=== PATIENT | female | born 1990 ===

== ENCOUNTER 2017-04-03 12:03 | Emergency (ER) | payer OTHER ==
[2017-04-03 12:12] VITALS: BP 134/95; PULSE 106; RESP 18; TEMP 100.4; O2SAT 98; BMI 24.2
--- NOTE | 2017-04-03 12:27 | ED PDOC ---
HPI: General Adult Time Seen by Provider: 04/03/17 12:21 Chief Complaint (Provider): Cough History Per: Patient History/Exam Limitations: no limitations Current Symptoms Are (Timing): Still Present Additional Complaint(s): Francisco West is a 26 year old female that presents to the ED with a chief complaint of a productive cough with associated mild fever that she has been experiencing for the past week. Clear and white sputum. Past Medical History Reviewed: Historical Data Vital Signs: Last Vital Signs Temp 100.4 F H 04/03/17 12:11 Pulse 106 H 04/03/17 12:11 Resp 18 04/03/17 12:11 BP 134/95 H 04/03/17 12:11 Pulse Ox 98 04/03/17 12:34 - Family History Family History: States: Unknown Family Hx - Immunization History Hx Tetanus Toxoid Vaccination: No Hx Influenza Vaccination: No Hx Pneumococcal Vaccination: No - Home Medications Home Medications: Ambulatory Orders Medication Instructions Recorded Desogestrel/Ethinyl Estradio [Apri 1 tab DAILY 05/07/15 0.15 mg-0.03 mg] Spironolactone 50 mg PO DAILY 05/07/15 Pantoprazole Sodium [Protonix] 40 mg PO DAILY #15 ect 01/07/17 Albuterol HFA [Ventolin HFA 90 1 puff IH BID PRN #1 unit 04/03/17 mcg/actuation (8 g)] Azithromycin [Zithromax] 250 mg PO DAILY #6 tab 04/03/17 Promethazine HCl/Codeine 10 ml PO Q8H PRN #150 ml 04/03/17 [Prometh-Codein 6.25-10 mg/5 ml] predniSONE [predniSONE Tab] 20 mg PO DAILY #12 tab 04/03/17 - Allergies Allergies/Adverse Reactions: Allergies Allergy/AdvReac Type Severity Reaction Status Date / Time No Known Allergies Allergy Verified 05/07/15 17:08 Review of Systems Constitutional: Positive for: Fever Respiratory: Positive for: Cough (productive) Physical Exam - Reviewed Nursing Documentation Reviewed: Yes Vital Signs Reviewed: Yes - Physical Exam Appears: Positive for: Non-toxic, No Acute Distress Head Exam: Positive for: ATRAUMATIC, NORMOCEPHALIC Skin: Positive for: Normal Color, Warm Eye Exam: Positive for: Normal appearance, EOMI, PERRL ENT: Positive for: Normal ENT Inspection Cardiovascular/Chest: Positive for: Regular Rate, Rhythm. Negative for: Murmur Respiratory: Positive for: Normal Breath Sounds. Negative for: Wheezing Neurologic/Psych: Positive for: Alert, Oriented. Negative for: Motor/Sensory Deficits - ECG O2 Sat by Pulse Oximetry: 98 (RA) Pulse Ox Interpretation: Normal Medical Decision Making Medical Decision Making: Impression: Viral Infection Plan: * Patient given Rx for Azithromycin, discussed with patient not to use Azithromycin unless symptoms worsen over the course of the next few days. Patient additionally given other Rx to use in the meantime. Patient has no additional complaints or questions, is stable for discharge home. Scribe Attestation: Documented by Khushi Don, acting as a scribe for Elaine Valentino PA-C. Provider Scribe Attestation: All medical record entries made by the Scribe were at my direction and personally dictated by me. I have reviewed the chart and agree that the record accurately reflects my personal performance of the history, physical exam, medical decision making, and the department course for this patient. I have also personally directed, reviewed, and agree with the discharge instructions and disposition. Disposition - Clinical Impression Clinical Impression: URI (upper respiratory infection), Viral infection - Patient ED Disposition Is Patient to be Admitted: No - Disposition Disposition: Routine/Home Disposition Time: 12:29 Condition: STABLE Prescriptions: Albuterol HFA [Ventolin HFA 90 mcg/actuation (8 g)] 1 puff IH BID PRN #1 unit PRN Reason: Wheezing Azithromycin [Zithromax] 250 mg PO DAILY #6 tab predniSONE [predniSONE Tab] 20 mg PO DAILY #12 tab Promethazine HCl/Codeine [Prometh-Codein 6.25-10 mg/5 ml] 10 ml PO Q8H PRN #150 ml PRN Reason: Cough Instructions: Upper Respiratory Infection (ED) Forms: [employer] (Hungarian)
== END 2017-04-03 12:48 | disposition home or self-care (01) ==
LOC: H.ER 12:03
DX: J06.9 Acute upper respiratory infection, unspecified (principal)

== ENCOUNTER 2017-11-14 05:25 | Emergency (ER) | payer BC, OTHER ==
[2017-11-14 05:30] VITALS: BMI 25.3
[2017-11-14] MEDS ORDERED: DiphenhydrAMINE 50 mg/ml Inj IVP STA (05:30)
--- NOTE | 2017-11-14 05:32 | ED PDOC ---
HPI: Allergic Reaction Time Seen by Provider: 11/14/17 05:29 History Per: Patient History/Exam Limitations: no limitations Onset/Duration Of Symptoms: Hrs Current Symptoms Are (Timing): Still Present Additional Complaint(s): Hx of seasonal allergies presenting with allergies, states she started having symptoms of itchy eyes and then itchy throat, no respiratory difficulty, no shortness of breath. No fevers. Normally takes claritin, last usage was 30 minutes ago. States symptoms acutely worsened while exercising. Patient took benadryl 50mg PO and pepcid 20mg PO. No fevers, chills. Past Medical History Reviewed: Historical Data, Nursing Documentation, Vital Signs - Medical History PMH: No Chronic Diseases - Family History Family History: States: Unknown Family Hx - Immunization History Hx Tetanus Toxoid Vaccination: No Hx Influenza Vaccination: No Hx Pneumococcal Vaccination: No - Home Medications Home Medications: Ambulatory Orders Medication Instructions Recorded Nitrofurantoin Macrocrystals 1 cap PO BID #14 cap 07/01/17 [Macrobid] Phenazopyridine [Pyridium] 200 mg PO BID #6 tab 07/01/17 - Allergies Allergies/Adverse Reactions: Allergies Allergy/AdvReac Type Severity Reaction Status Date / Time No Known Allergies Allergy Verified 07/01/17 13:35 Review of Systems ROS Statement: Except As Marked, All Systems Reviewed And Found Negative ENT: Positive for: Nose Discharge, Nose Congestion. Negative for: Throat Swelling Physical Exam - Reviewed Nursing Documentation Reviewed: Yes Vital Signs Reviewed: Yes - Physical Exam Appears: Positive for: Well, Non-toxic, Uncomfortable Head Exam: Positive for: ATRAUMATIC, NORMAL INSPECTION, NORMOCEPHALIC Skin: Positive for: Normal Color, Warm, DRY Eye Exam: Positive for: EOMI, PERRL, Periorbital swelling ENT: Positive for: Sinus Pain/Drainage Neck: Positive for: Normal, Painless ROM Cardiovascular/Chest: Positive for: Regular Rate, Rhythm Respiratory: Positive for: CNT, Normal Breath Sounds Gastrointestinal/Abdominal: Positive for: Normal Exam, Soft Back: Positive for: Normal Inspection Extremity: Positive for: Normal ROM Neurologic/Psych: Positive for: Alert, Oriented - ECG Pulse Ox Interpretation: Normal - Progress ED Course And Treament: 530AM A/P: Hx of seasonal allergies presenting with allergic reaction -patient has patent airway, no acute distress although uncomfortable appearing -will provide benadryl and solu-medrol, ice pack is placed on eyes -will re-eval 630AM -Patient much improved, swelling has decreased, able to open eyes -Will discharge home -Return precautions given Re-evaluation Time: 06:30 Condition: Re-examined, Improved Disposition - Clinical Impression Clinical Impression: Allergic reaction - Patient ED Disposition Is Patient to be Admitted: No - Disposition Referrals: Maricel Marsh MD [Primary Care Provider] - Disposition: Routine/Home Disposition Time: 06:28 Condition: IMPROVED Instructions: Seasonal Allergies in Adults
[2017-11-14 05:52] VITALS: BP 144/97; PULSE 86; RESP 16; TEMP 98; O2SAT 100
== END 2017-11-14 07:08 | disposition home or self-care (01) ==
LOC: H.ER 05:25
DX: J30.2 Other seasonal allergic rhinitis (principal)
CPT/HCPCS: 96374; 96375; 99283; J1200; J2930

== ENCOUNTER 2018-06-18 08:41 | Emergency (ER) | payer OTHER ==
[2018-06-18 08:46] VITALS: PULSE 92; TEMP 98; O2SAT 100; BMI 26.2
[2018-06-18] MEDS ORDERED: PROPARACAINE/FLUORESCEIN SOD 100 DROP/5 ML BOTTLE OD STA (09:07)
[2018-06-18] MEDS ORDERED: Oxycodone/Acetaminophen 5/325 mg Tab PO STA (09:11)
[2018-06-18] MEDS ORDERED: Oxycodone/Acetaminophen 5/325 mg Tab ONE (09:17)
[2018-06-18] MEDS ORDERED: Ciprofloxacin 0.3% OPTH SOLN OD STA (09:34)
--- NOTE | 2018-06-18 10:14 | ED PDOC ---
HPI: Eye Injury/Pain Time Seen by Provider: 06/18/18 08:58 Chief Complaint (Nursing): Eye Problem Chief Complaint (Provider): Eye Problem History Per: Patient History/Exam Limitations: no limitations Onset/Duration Of Symptoms: Days (x 1) Current Symptoms Are (Timing): Still Present Wears Contact Lens?: Yes Associated Symptoms: Pain Additional Complaint(s): 28 year old female with worsening right eye pain since last night. Patient reports she had irritation when wearing contacts. She flushed eye with saline with contact still present. Patient tried to remove contact and experienced severe pain. She then went to bed after successfully removing it and woke up with severe pain, photophobia and swelling of upper eyelid. Denies a history of similar symptoms. Offers no other medical complaints. PMD: Dr. Maricel Marsh Opthamologist: Dr Suleman Oliveira Past Medical History Reviewed: Historical Data, Nursing Documentation, Vital Signs Vital Signs: Last Vital Signs Temp 98 F 06/18/18 08:45 Pulse 92 H 06/18/18 08:45 Resp BP 138/93 H 06/18/18 08:45 Pulse Ox 100 06/18/18 08:45 - Medical History PMH: No Chronic Diseases - Surgical History Surgical History: No Surg Hx - Family History Family History: States: Unknown Family Hx - Immunization History Hx Tetanus Toxoid Vaccination: No Hx Influenza Vaccination: No Hx Pneumococcal Vaccination: No - Home Medications Home Medications: Ambulatory Orders Medication Instructions Recorded Nitrofurantoin Macrocrystals 1 cap PO BID #14 cap 07/01/17 [Macrobid] Phenazopyridine [Pyridium] 200 mg PO BID #6 tab 07/01/17 Cephalexin [Keflex] 500 mg PO BID #20 capsule 01/08/18 Desogestrel-Ethinyl Estradiol 1 tab PO DAILY 01/08/18 [Apri 28 Day Tablet] Ibuprofen [Motrin] 600 mg PO Q6H PRN #20 tab 01/08/18 Phenazopyridine [Phenazopyridine 200 mg PO BID #6 tab 01/08/18 HCl] - Allergies Allergies/Adverse Reactions: Allergies Allergy/AdvReac Type Severity Reaction Status Date / Time No Known Allergies Allergy Verified 06/18/18 09:17 Review of Systems ROS Statement: Except As Marked, All Systems Reviewed And Found Negative Eyes: Positive for: Pain (right), Eyelid Inflammation (swelling of right upper eyelid ), Other (photophobia) Physical Exam - Reviewed Nursing Documentation Reviewed: Yes Vital Signs Reviewed: Yes - Physical Exam Appears: Positive for: Non-toxic, No Acute Distress Head Exam: Positive for: ATRAUMATIC, NORMAL INSPECTION, NORMOCEPHALIC Skin: Positive for: Normal Color, Warm, Dry Eye Exam: Positive for: Other (right upper eyelid swollen without erythema. fluorescein uptake covering entire pupil w circular shape and irregular borders; not extending past iris. Erythema of tarsal plates with eyelid inversion. No foreign bodies. Vision intact to object differentiation with pain control). Negative for: Normal appearance (Patient is unable to spontaneously open eye due to pain and photophobia) Cardiovascular/Chest: Positive for: Regular Rate, Rhythm Respiratory: Positive for: Normal Breath Sounds Neurologic/Psych: Positive for: Alert, Oriented. Negative for: Motor/Sensory Deficits - ECG O2 Sat by Pulse Oximetry: 100 (RA) Pulse Ox Interpretation: Normal Medical Decision Making Medical Decision Makin:07 MDM: Patient presents with corneal abrasion secondary to contact lens removal Pain and vision improved with fluorescein, lidocaine and topical application. Patient given ofloxacin drops Will be discharged from the ED and directly go to dust collector. Scribe Attestation: Documented by Parul Cage acting as a scribe for Xiomara Latham MD Provider Scribe Attestation: All medical record entries made by the Scribe were at my direction and personally dictated by me. I have reviewed the chart and agree that the record accurately reflects my personal performance of the history, physical exam, medical decision making, and the department course for this patient. I have also personally directed, reviewed, and agree with the discharge instructions and disposition. Disposition - Clinical Impression Clinical Impression: Eye injury - Disposition Disposition: Routine/Home Disposition Time: 09:07 Condition: IMPROVED Additional Instructions: Go straight to the dust collector. Apply antibiotic eye drops every two hours. Return to the emergency department if symptoms worsen or if new symptoms develop. Forms: [employer] (Lao) Print Language: CYMRO
[2018-06-18 10:17] VITALS: RESP 18
[2018-06-18 10:24] VITALS: BP 130/85
== END 2018-06-18 10:24 | disposition home or self-care (01) ==
LOC: H.ER 08:41
DX: S05.90XA Unspecified injury of unspecified eye and orbit, initial encounter (principal)

== ENCOUNTER 2018-09-21 04:29 | Emergency (ER) | payer OTHER ==
[2018-09-21 04:30] VITALS: BMI 26.2
[2018-09-21] MEDS ORDERED: Albuterol-Ipratrop 3 mg / 0.5 (3 ml) UD INH STA ×3 (04:39)
[2018-09-21] MEDS ORDERED: Albuterol-Ipratrop 3 mg / 0.5 (3 ml) UD ONE (04:55)
--- NOTE | 2018-09-21 05:27 | ED PDOC ---
HPI: Influenza Time Seen by Provider: 09/21/18 04:34 Chief Complaint: Cough, Cold, Congestion Chief Complaint (Provider): Cough, Cold, Congestion Symptoms include: cough Additional complaint(s):: 28 y/o female with no significant past medical history presents to the Ed complaining of wheezing. Patient states she was coughing all night and states she feels as though her lungs are congested. She denies any fevers, recent illness, or sick contacts. Past Medical History Reviewed: Historical Data, Nursing Documentation, Vital Signs Vital Signs: Last Vital Signs Temp 98.7 F 09/21/18 04:37 Pulse 92 H 09/21/18 04:37 Resp 16 09/21/18 04:37 BP 129/85 09/21/18 04:37 Pulse Ox 97 09/21/18 04:37 - Medical History PMH: No Chronic Diseases - Surgical History Surgical History: No Surg Hx - Family History Family History: States: Unknown Family Hx - Immunization History Hx Tetanus Toxoid Vaccination: Yes Hx Influenza Vaccination: Yes Hx Pneumococcal Vaccination: No - Home Medications Home Medications: Ambulatory Orders Medication Instructions Recorded Nitrofurantoin Macrocrystals 1 cap PO BID #14 cap 07/01/17 [Macrobid] Phenazopyridine [Pyridium] 200 mg PO BID #6 tab 07/01/17 Cephalexin [Keflex] 500 mg PO BID #20 capsule 01/08/18 Desogestrel-Ethinyl Estradiol 1 tab PO DAILY 01/08/18 [Apri 28 Day Tablet] Ibuprofen [Motrin] 600 mg PO Q6H PRN #20 tab 01/08/18 Phenazopyridine [Phenazopyridine 200 mg PO BID #6 tab 01/08/18 HCl] Nitrofurantoin Macrocrystals 1 cap PO BID #14 cap 07/21/18 [Macrobid] Albuterol 0.083% [Albuterol 0.083% 2.5 mg IH Q4 PRN #60 neb 09/21/18 Inhal Marce (2.5 mg/3 ml) UD] Albuterol HFA [Ventolin HFA 90 2 puff IH [id number] #1 puff 09/21/18 mcg/actuation (8 g)] Non-Formulary 1 ea PO ONCE #1 ea 09/21/18 predniSONE [predniSONE Tab] 60 mg PO DAILY #9 tab 09/21/18 - Allergies Allergies/Adverse Reactions: Allergies Allergy/AdvReac Type Severity Reaction Status Date / Time No Known Allergies Allergy Verified 09/21/18 06:19 Review of Systems ROS Statement: Except As Marked, All Systems Reviewed And Found Negative Constitutional: Negative for: Fever Respiratory: Positive for: Cough, Wheezing Physical Exam - Reviewed Nursing Documentation Reviewed: Yes Vital Signs Reviewed: Yes - Physical Exam Appears: Positive for: Well, Non-toxic, No Acute Distress Head Exam: Positive for: ATRAUMATIC, NORMAL INSPECTION, NORMOCEPHALIC Skin: Positive for: Normal Color, Warm, DRY Eye Exam: Positive for: EOMI, Normal appearance, PERRL ENT: Positive for: Normal ENT Inspection Neck: Positive for: Normal, Painless ROM Cardiovascular/Chest: Positive for: Regular Rate, Rhythm Respiratory: Positive for: Wheezing (bilateral expiratory). Negative for: Accessory Muscle Use, Respiratory Distress Gastrointestinal/Abdominal: Positive for: Normal Exam, Soft. Negative for: Tenderness Back: Positive for: Normal Inspection Extremity: Positive for: Normal ROM. Negative for: Pedal Edema, Deformity Neurological/Psych: Positive for: Awake, Alert, Normal Tone. Negative for: Motor/Sensory Deficits Medical Decision Making Medical Decision Making: Time: 04:39 A/P: 28 y/o with bronchospastic cough. Will treat with Prednisone, duonebs and reevaluate * Duonebs * Prednisone 6:30 Patient is feeling much better, no longer wheezing Will prescribe albuterol, steroids Encouraged close followup with Dr. Marsh Very well appearing Scribe Attestation: Documented by Jarret Em, acting as a scribe for Alfredo Bo MD. Provider Scribe Attestation: All medical record entries made by the Scribe were at my direction and personally dictated by me. I have reviewed the chart and agree that the record accurately reflects my personal performance of the history, physical exam, medical decision making, and the department course for this patient. I have also personally directed, reviewed, and agree with the discharge instructions and disposition. - ECG O2 Sat by Pulse Oximetry: 97 Disposition - Clinical Impression Clinical Impression: Bronchospasm - Patient ED Disposition Is Patient to be Admitted: No - Disposition Referrals: Maricel Marsh MD [Medical Doctor] - Disposition: Routine/Home Disposition Time: 06:34 Condition: IMPROVED Prescriptions: Albuterol HFA [Ventolin HFA 90 mcg/actuation (8 g)] 2 puff IH [id number] #1 puff Albuterol 0.083% [Albuterol 0.083% Inhal Marce (2.5 mg/3 ml) UD] 2.5 mg IH Q4 PRN #60 neb PRN Reason: Wheezing Non-Formulary 1 ea PO ONCE #1 ea predniSONE [predniSONE Tab] 60 mg PO DAILY #9 tab Instructions: Asthma in Adults Forms: [employer] (Portuguese)
[2018-09-21 06:55] VITALS: BP 128/84; PULSE 96; RESP 18; TEMP 98.6; O2SAT 99
--- NOTE | 2018-09-21 08:06 | RAD ---
Date of service: 09/21/2018 HISTORY: COUGH, wheezing COMPARISON: No prior. TECHNIQUE: Chest PA and lateral FINDINGS: LUNGS: No active pulmonary disease. PLEURA: No significant pleural effusion identified. No pneumothorax apparent. CARDIOVASCULAR: No aortic atherosclerotic calcification present. Normal cardiac size. No pulmonary vascular congestion. OSSEOUS STRUCTURES: No significant abnormalities. VISUALIZED UPPER ABDOMEN: Normal. OTHER FINDINGS: None. IMPRESSION: No acute cardiopulmonary disease appreciated.
== END 2018-09-21 06:40 | disposition home or self-care (01) ==
LOC: H.ER 04:29
DX: J98.01 Acute bronchospasm (principal)